=== PATIENT | male | born 1955 | race Caucasian/White ===

== ENCOUNTER → 2018-04-11 | Outpatient (CLI) | payer BC ==
--- NOTE | 2018-04-11 15:56 | PCVCIMAG ---
APPROVED REPORT Indications Remote CVA Risk Factors Stroke Doppler Spectral Velocity Analysis PSV / EDVPSV / EDV ECA (R) 76 / 9 cm/sECA (L) 78 / 15 cm/s dICA (R) 42 / 17 cm/sdICA (L) 46 / 19 cm/s Gutierrez (R) 63 / 21 cm/smICA (L) 56 / 25 cm/s pICA (R) 36 / 5 cm/spICA (L) 80 / 14 cm/s Bulb (R) 86 / 18 cm/sBulb (L) 99 / 17 cm/s dCCA (R) 89 / 20 cm/sdCCA (L) 107 / 23 cm/s mCCA (R) 103 / 21 cm/smCCA (L) 119 / 27 cm/s Vert (R) 40 / 13 cm/sVert (L) ICA/CCA 0.71ICA/CCA 0.75 Basic Measurements Blood Pressure: Pulses: Right Left RightLeft Brachial(Sitting) 124/66bnDa673/86mmHgTemporal Real Time B-Mode Imaging Vert. (R)Antegrade Findings The right carotid bulb has mild plaque. The right proximal internal carotid artery shows no significant stenosis. The right common carotid artery shows no significant stenosis. The right external carotid artery shows no significant stenosis. The left carotid bulb has minimal plaque. The left proximal internal carotid artery shows no significant stenosis. The left common carotid artery shows no significant stenosis. The left external carotid artery shows no significant stenosis. Conclusion 1. Minimal bilateral plaquing without significant stenosis 2. Antegrade right vertebral flow. Congenitally absent left vertebral.
--- NOTE | 2018-04-11 15:58 | PCVCIMAG ---
APPROVED REPORT Study performed: 04/11/2018 14:20:35 Exam: Stress Echocardiogram Indication: Chest pain , Hyperlipidemia, Hypertension Patient Location: Echo lab Stress Nurse: Marietta Garcia RN Room #: 2 Status: routine Ht: 5 ft 8 in HR: 83 bpm BP: 132/82 mmHg Rhythm: NSR Medical History Medical History: CVA,HTN,CHOL Cardiac Risk Factors: HTN, Hyperlipidemia Pretest Chest Pain Characteristics: No chest pain Exercise History: Physically active Procedure The patient underwent an Exercise Stress Test using the Rohan Protocol. Blood pressure, heart rate, and EKG were monitored. An Echocardiogram was performed by waste transportation technician in four stages in quad fashion. At peak stress, four selected images were obtained and placed side by side with resting images for comparison. Stress Test Details Stress Test: Exercise stress testing was performed using a Rohan protocol. HR Resting HR: 83 bpmMax Heart Rate (APMHR): 156 bpm Max HR Achieved: 153 bpmTarget HR (85% APMHR): 132 bpm % of APMHR: 98 Recovery HR: 80 bpm HR response to stress: Normal HR response to stress BP Resting BP: 132/82 mmHg Max BP: 154/80 mmHg Recovery BP: 136/74 mmHg BP response to stress: Normal blood pressure response to stress. ECG Resting ECG: Sinus Rhythm Stress ECG: Sinus Rhythm ST Change: Non-ischemic Arrhythmia: None Recovery ECG: Sinus Rhythm Recovery ST Change: Non-ischemic Recovery Arrhythmia: None Clinical Reason for Termination: Maximal effort Stress Symptoms: none Exercise duration: 9 min 19 sec Highest Stage Achieved: Stage 4: 4.2 mph at 16% grade. Exercise capacity: 10.5 METs Overall Exercise Capacity for Age: Good Scale: Active Angina Score: None No complications. Stress ECG Conclusion The patient exercised according to the ROHAN protocol for 9:19 mins; achieving a work level of 10.5 METS. The resting heart rate of 83 bpm juan luis to a maximum heart rate of 153 bpm. This value represent 98% of the maximal, age-predicted heart rate. The resting blood pressure of 132/82 mmHg, juan luis to a maximum blood pressure of 154/80 mmHg. The exercise test was stopped due to fatigue . Pre-Stress Echo The resting Echocardiogram showed normal left ventricular contractility with an estimated Ejection Fraction of about 55-60%. Normal wall motion in all segments on baseline images. Post-Stress Echo The stress Echocardiogram showed normal left ventricular contractility with an estimated Ejection Fraction of about 65-70%. Normal augmentation of wall motion in all segments on post stress images. Clinical No clinical or ECG evidence for ischemia. Conclusion Clinical Response: Non-ischemic Exercise Capacity: Average Stress ECG Response: Non-ischemic Stress Echo Images: Non-ischemic No clinical, EKG or echocardiographic evidence for ischemia. No echocardiographic evidence for exercise induced ischemia. Normal stress echocardiogram with maximal exercise stress. <Conclusion> No clinical, EKG or echocardiographic evidence for ischemia. No echocardiographic evidence for exercise induced ischemia. Normal stress echocardiogram with maximal exercise stress.
== END | disposition home or self-care (01) ==
LOC: PCVCIMAG 14:03
PROVIDERS: ATTEND Internal Medicine
DX: I65.23 Occlusion and stenosis of bilateral carotid arteries (principal); I63.9 Cerebral infarction, unspecified; R07.9 Chest pain, unspecified; I10 Essential (primary) hypertension; E78.5 Hyperlipidemia, unspecified
CPT/HCPCS: 93325; 93351; 93880